=== PATIENT | female | born 1970 | race Caucasian/White ===

== ENCOUNTER 2022-07-26 08:42 | Day surgery (SDC) | payer BC ==
[~2022-07-26] VITALS: Ht 165.1 cm; Wt 63.5 kg
[2022-07-26 08:08] LABS: HCG,QUAL RESULT NEGATIVE (NEGATIVE)
[~2022-07-26 08:42] MED LIST: CEFAZOLIN SOD 1 GM/ ISO 50 ML PREMIX IV ONE
[2022-07-26] MEDS ORDERED: MIDAZOLAM HCL 5 MG/5 ML VIAL IVP ONE ×2 (12:10)
[2022-07-26] MEDS ORDERED: fentaNYL CITRATE 250 MCG/5 ML AMP IV ONE (12:10)
[2022-07-26] MEDS ORDERED: LIDOCAINE 1% 10 MG/ML, 20 ML MDV INJ ONE (12:10)
[2022-07-26] MEDS ORDERED: SEVOFLURANE 15 MIN GAS INH ONE (12:10)
[2022-07-26] MEDS ORDERED: NS 100 ML BAG IV ONE (12:10)
[2022-07-26] MEDS ORDERED: ISOSULFAN BLUE 5 ML VIAL (LYMPHAZURIN) INJ ONE (12:10)
[2022-07-26] MEDS ORDERED: BUPIVACAINE /PF 0.25% 30 ML VIAL INJ ONE (12:10)
[2022-07-26] MEDS ORDERED: NS IRRIG SOLN 1000 ML IR ONE (12:10)
[2022-07-26] MEDS ORDERED: DEXAMETHASONE SOD PHOSPHATE 4 MG/ML VIAL IVP ONE (12:10)
[2022-07-26] MEDS ORDERED: KETOROLAC TROMETHAMINE 30 MG VIAL IVP ONE (12:10)
[2022-07-26] MEDS ORDERED: PROPOFOL 200MG/ 20ML VIAL (DIPRIVAN) IV ONE (12:10)
[2022-07-26] MEDS ORDERED: LR 1,000 ML IV.SOLN IV ONE (12:10)
[2022-07-26] MEDS ORDERED: ACETAMINOPHEN I.V. 1000 MG 100 ML IV ONE (13:12)
[2022-07-26] MEDS ORDERED: METOCLOPRAMIDE HCL 10 MG/2 ML VIAL IVP PRN (13:15)
[2022-07-26] MEDS ORDERED: MIDAZOLAM HCL 2 MG/2 ML VIAL (VERSED) IVP PRN (13:15)
[2022-07-26] MEDS ORDERED: HYDROmorphone 1 MG/ML INJ. CARTRIDGE IVP PRN ×3 (13:15→16:30)
[2022-07-26] MEDS ORDERED: MEPERIDINE HCL/PF 25 MG/ML DISP.SYRIN IVP PRN (13:15)
[2022-07-26] MEDS ORDERED: LR 1,000 ML IV SCH (13:15)
[2022-07-26] MEDS ORDERED: HYDROmorphone 1 MG/ML INJ. CARTRIDGE ONE (14:13)
[2022-07-26] MEDS ORDERED: D5/0.45 NS 1,000 ML IV SCH (16:30)
[2022-07-26] MEDS ORDERED: HYDROcodone/ACETAMIN 5-325 MG TAB (NORCO/ VICODIN) PO PRN (16:30)
[2022-07-26 16:47] VITALS: BP_SYST 145
== END 2022-07-26 16:08 | disposition home or self-care (01) ==
LOC: SDS 08:42 → SMU 08:48 → EDSTATUS 10:50 → SDS 16:08
PROVIDERS: ATTEND Colon & Rectal Surgery
DX: C50.911 Malignant neoplasm of unspecified site of right female breast (principal); Z79.899 Other long term (current) drug therapy; Z20.822 Contact with and (suspected) exposure to COVID-19
CPT/HCPCS: 36415 ×2; 19301; 38525; 38900; 84703; 19281; 78195; 88307; 88333; 88334; 88342; 87426; U0003; A9541; J3490; J0690; J1100; J1885; J2001; J2250; J3465; J2704; J3010; J1170; Q9968; J7120; J0131